=== PATIENT | female | born 1965 | race Caucasian/White ===

== ENCOUNTER → 2017-02-08 16:57 | Outpatient (CLI) | payer MEDICARE ==
[~2017-02-08 16:57] MED LIST: ADVIL200 MG; CYMBALTA60 MG; NORCO 10/325 TA1 TA1; PERCOCET 10/3251 TA1 PO; PRINZIDE 20/12.1 TAB PO; REMERON45 MG PO
== END | disposition home or self-care (01) ==
LOC: D.MAMMO 02-06 08:30 → D.US 02-06 09:30 → D.MAMMO 10:30
DX: K58.9 Irritable bowel syndrome, unspecified (principal); K59.00 Constipation, unspecified

== ENCOUNTER 2017-05-30 22:51 | Emergency (ER) | payer MEDICARE, MEDICAID ==
[2017-05-30 23:14] LABS: HEMATOCRIT 38.2 % (36.0-48.0); HEMOGLOBIN 12.9 g/dL (12-16); MCH 30.4 pg (26.0-34.0); MCHC 33.8 g/dL (31.0-37.0); MCV 90.1 fL (80.0-100.0); MEAN PLATELET VOLUME 9.5 fL (7.4-10.4); PLATELET COUNT 279 10x3/uL (130-400); RBC 4.24 10x6/uL (4.00-5.40); RDW 12.8 % (11.5-14.5)
[2017-05-30 23:36] LABS: ALBUMIN 3.5 g/dL (3.4-5.0); ALKALINE PHOSPHATASE 115 U/L (46-116); ALT (SGPT) 26 U/L (10-68); BILIRUBIN - TOTAL 0.19 mg/dL (0.2-1.3); CALC OSMOLALITY 276 mosm/kg (275-300); CALCIUM 9.1 mg/dL (8.5-10.1); CARBON DIOXIDE 31.1 mmol/L (21.0-32.0); CHLORIDE - SERUM 99 mmol/L (98-107); CREATININE - SERUM 1.1 mg/dL (0.6-1.3); GLUCOSE 113 mg/dL (74-106); POTASSIUM - SERUM 3.8 mmol/L (3.5-5.1); PROTEIN - SERUM 6.8 g/dL (6.4-8.2); SODIUM 137 mmol/L (136-145); UREA NITROGEN 17 mg/dL (7-18); eGFR NON AFRICAN AMERICAN 56 mL/min (90-120)
[2017-05-30 23:43] LABS: LYMPHOCYTES 61 % (15-50); MONOCYTES 2 % (2-11); NEUTROPHILS 35 % (40-80); PLATELET ESTIMATE NORMAL
[2017-05-30 23:44] LABS: CREATINE KINASE 80 UL (21-215)
[2017-05-30 23:47] LABS: TROPONIN-I < 0.017 ng/mL (0.000-0.060)
== END 2017-05-31 01:15 | disposition home or self-care (01) ==
LOC: D.ER 22:51
PROVIDERS: Emergency Medicine
DX: R55 Syncope and collapse (principal); W19.XXXA Unspecified fall, initial encounter; Y93.89 Activity, other specified; Y92.019 Unspecified place in single-family (private) house as the place of occurrence of the external cause; E11.9 Type 2 diabetes mellitus without complications; I10 Essential (primary) hypertension; F17.200 Nicotine dependence, unspecified, uncomplicated; R00.1 Bradycardia, unspecified

== ENCOUNTER 2017-07-27 06:00 | Outpatient (CLI) | payer MEDICARE ==
[~2017-07-27 06:00] MED LIST changes: +HYDROCODONE-APA1 TAB PO; -NORCO 10/325 TA1 TA1; -PRINZIDE 20/12.1 TAB PO; +ZESTORETIC 10/11 TAB PO
[2017-07-27] MEDS ORDERED: AMBIEN10 MG PO (13:42)
[2017-07-27] MEDS ORDERED: SEROQUEL50 MG PO (13:42)
[2017-07-27] MEDS ORDERED: K-TAB10 MEQ PO (13:42)
[2017-07-27] MEDS ORDERED: ZANAFLEX4 MG PO (13:42)
[2017-07-27] MEDS ORDERED: XANAX0.5 MG PO (13:43)
[2017-07-27 14:33] LABS: HEMATOCRIT 39.2 % (36.0-48.0); MCH 30.2 pg (26.0-34.0); MCHC 33.2 g/dL (31.0-37.0); MEAN PLATELET VOLUME 9.5 fL (7.4-10.4); RBC 4.31 10x6/uL (4.00-5.40); RDW 12.8 % (11.5-14.5); WBC 9.4 10x3/uL (4.8-10.8)
[2017-07-27 14:36] LABS: ANION GAP 10.6 mmol/L (8-16); CALCIUM 8.8 mg/dL (8.5-10.1); CARBON DIOXIDE 31.9 mmol/L (21.0-32.0); CREATININE - SERUM 0.9 mg/dL (0.6-1.3); POTASSIUM - SERUM 3.5 mmol/L (3.5-5.1)
[2017-08-06 12:01] VITALS: BMI 29.9
== END 2017-07-27 23:59 | disposition home or self-care (01) ==
LOC: D.OPS 06:00 → EDSTATUS 07-30 13:15 → D.PAN 07-30 13:15
PROVIDERS: Anesthesiology
DX: I10 Essential (primary) hypertension (principal); Z01.810 Encounter for preprocedural cardiovascular examination; Z01.811 Encounter for preprocedural respiratory examination; Z01.812 Encounter for preprocedural laboratory examination; Z53.9 Procedure and treatment not carried out, unspecified reason

== ENCOUNTER 2017-08-06 11:17 | Outpatient (CLI) | payer MEDICARE ==
[~2017-08-06] VITALS: Ht 177.8 cm; Wt 94.5 kg
--- NOTE | ~2017-08-06 | HEMODYNAMI ---
PATIENT:JENNIE SAVAGE MEDICAL RECORD: [id number] : 69 LOCATION:[facility] ADMISSION DATE: 08/06/17 Generatedon:08/06/201714:21 Patient name: JENNIE SAVAGE Patient #: [id number] SSN: : Date of study: 08/06/2017 Page: Of Hemodynamic Procedure Report Patient Data Patient Demographics Procedure consent was obtained First Name: JENNIE Gender: Female Last Name: JANETTE : 1965 [facility] Initial: SARAI Age: 51 year(s) Patient #: [id number] Race: Unknown Additional ID: [id number] Contact details [address]: [address] [place] [address] [place] State: [place] City: [place] Zip code: [address] Past Medical History Allergies Allergen Reaction Date Comments Reported Other allergy 08/06/2017 Tamiflu, Latex, Morphine, Vasotec Admission Admission Data Admission Date: 08/06/2017 Admission Time: 11:17 Procedure Procedure Types Cath Procedure Diagnostic Procedure LHC LHC w/Coronaries Miscellaneous Procedures Moderate Sedation up to 15 minutes Procedure Description Procedure Date Procedure Date: 08/06/2017 Procedure Start Time: 14:05 Procedure End Time: 14:20 Procedure Staff Name Function Joce Saha MD Performing Physician Roman Deras RT Monitor Louis Pimentel RN Nurse Leila Correia RT Scrub Procedure Data Cath Procedure Fluoroscopy Diagnostic fluoroscopy Total fluoroscopy Time: 1.4 time: 1.4 min min Diagnostic fluoroscopy Total fluoroscopy dose: 534 dose: 534 mGy mGy Contrast Material Contrast Material Type Amount (ml) Isovue 300 54 Entry Location Entry Primary Successful Side Size Upsize Upsize Entry Closure Clark ccessful Closure Location (Fr) 1 (Fr) 2 (Fr) Remarks Device Remarks Radial Right 6 Fr Mechanical artery Short Compression Estimated blood loss: 5 ml Diagnostic catheters Device Type Used For End Catheter Placement DIAGNOSTIC Casey 110cm 5 Procedure Fr catheter ([id number]) Procedure Complications No complications Procedure Medications Medication Administration Route Dosage 0.9% NaCl I.V. 100 ml/hr Oxygen NC 2 l/min Heparin Flush Bag added to field 2 bags (1000units/500ml NS) Lidocaine 2% added to field 20 Radial Cocktail added to field 1 syringe (Verapomil 2mg/Nitro 400mcg/Heparin 1500units) Versed I.V. 2 mg Fentanyl I.V. 100 mcg Versed I.V. 2 mg Fentanyl I.V. 100 mcg Versed I.V. 2 mg Fentanyl I.V. 100 mcg Radial Cocktail I.A. 1 syringe (Verapomil 2mg/Nitro 400mcg/Heparin 1500units) Versed I.V. 2 mg Hemodynamics Rest Heart Rate: 70 (bpm) Pressure Samples Time Site Value (mmHg) Purpose Heart Use Rate(bpm) 14:09 LV 78/5,8 Snapshot 77 14:09 LV 114/1,13 Snapshot 77 14:09 AO 111/67(86) Pullback 78 14:09 LV 116/0,7 Pullback 78 Gradients Valve Time Site 1 Site 2 Mean SEP/DFP Peak To Heart Use (mmHg) (sec/min) Peak Rate (mmHg) (bpm) Aortic 14:09 LV AO 7 6 5 78 116/0,7 111/67(86) Calculations Valve P-P Mean Valve Index Valve Source Name Gradient Area Flow (cm2) Aortic 5 7 5 7 Snapshots Pre Cath Intra NCS Post Cath Vital Signs Time Heart Resp SPO2 etCO2 NIBP (mmHg) Rhythm Pain Sedation Rate (ipm) (%) (mmHg) Status Level (bpm) 13:48:54 65 16 100 0 162/100(138) NSR 0 (11) 10(A) , No pain 13:53:30 68 27 100 0 150/98(126) NSR 0 (11) 10(A) , No pain 13:58:05 68 18 100 43 138/89(113) NSR 0 (11) 10(A) , No pain 14:02:39 69 17 99 24.9 127/80(107) NSR 0 (11) 10(A) , No pain 14:07:12 68 15 99 19.6 111/75(93) NSR 0 (11) 10(A) , No pain 14:11:38 73 13 97 23.4 113/89(105) NSR 0 (11) 10(A) , No pain 14:16:08 75 13 98 49.8 103/75(90) NSR 0 (11) 10(A) , No pain Medications Time Medication Route Dose Verified Delivered Reason Notes Effectiveness by by 13:48:49 0.9% NaCl I.V. 100 Louis Louis Per ml/hr Margarito Pimentel physician RN RN 13:49:00 Oxygen NC 2 l/min Louis Louis Per Margarito Pimentel physician RN RN 13:49:17 Heparin Flush added 2 bags Louis Louis used for Bag to Lorwilliams Pimentel procedure (1000units/500ml field RN RN NS) 13:50:28 Lidocaine 2% added 20ml Louis Louis for local to vial Lorigan Margarito anesthetic RN RN 13:50:47 Radial Cocktail added 1 Louis Louis used for (Verapomil to syringe Margarito Pimentel procedure 2mg/Nitro field AUGUSTINE RN 400mcg/Heparin 1500units) 13:57:43 Versed I.V. 2 mg Louis Louis for sedation Margarito Pimentel RN RN 13:57:51 Fentanyl I.V. 100 mcg Louis Louis for sedation Margarito Pimentel RN RN 13:59:30 Versed I.V. 2 mg Louis Louis for sedation Margarito Pimentel RN RN 13:59:37 Fentanyl I.V. 100 mcg Louis Louis for sedation Margarito Pimentel RN RN 14:02:06 Versed I.V. 2 mg Louis Louis for sedation Margarito Pimentel RN RN 14:07:26 Fentanyl I.V. 100 mcg Louis Louis for sedation Margarito Pimentel RN RN 14:08:53 Radial Cocktail I.A. 1 Louis Joce for (Verapomil syringe Margarito song 2mg/Nitro RN 400mcg/Heparin 1500units) 14:09:26 Versed I.V. 2 mg Louis Joce for sedation Margarito Saha MD, RN Procedure Log Time Note 13:37:32 Louis Pimentel RN sent for patient. Start room use. 13:37:33 Time tracking: Regular hours 13:37:37 Plan of Care:Hemodynamics will remain stable., Cardiac rhythm will remain stable., Comfort level will be maintained., Respiratory function will remain adequate., Patient/ family verbilizes understanding of procedure., Procedure tolerated without complication., Recovers from procedure without complications.. 13:47:58 Patient received from Pre/Post Procedure Room to CCL 1 Alert and oriented. Tansferred to table in Supine position. 13:47:59 Warm blankets applied, and celia hugger turned on for patient comfort. 13:48:00 Correct patient and procedure confirmed by team. 13:48:02 Signed procedure consent form obtained from patient. 13:48:03 ECG and BP/O2 sat monitors applied to patient. 13:48:04 Vital chart was started 13:48:05 Full Disclosure recording started 13:48:49 0.9% NaCl 100 ml/hr I.V. was administered by Louis Pimentel RN; Per physician; 13:49:00 Oxygen 2 l/min NC was administered by Louis Pimentel RN; Per physician; 13:49:17 Heparin Flush Bag (1000units/500ml NS) 2 bags added to field was administered by Louis Pimentel RN; used for procedure; 13:50:28 Lidocaine 2% 20ml vial added to field was administered by Louis Pimentel RN; for local anesthetic; 13:50:47 Radial Cocktail (Verapomil 2mg/Nitro 400mcg/Heparin 1500units) 1 syringe added to field was administered by Louis Pimentel RN; used for procedure; 13:54:39 Baseline sample Acquired. 13:54:43 Rhythm: sinus rhythm 13:55:02 H&P Date Dictated: 07/13/2017 Within 30 days and on chart., H&P Addendum completed by physician on day of procedure. (MUST COMPLETE FOR ALL OUTPATIENTS). 13:55:05 Pre-procedure instructions explained to patient. 13:55:06 Pre-op teaching completed and patient verbalized understanding. 13:55:07 Family in waiting room. 13:55:08 Patient NPO since Midnight. 13:55:33 Patient allergic to Other allergyTamiflu, Latex, Morphine, Vasotec 13:55:35 Is the patient allergic to Iodine/contrast media? No. 13:55:37 Is patient on blood thinner?No 13:55:38 Patient diabetic? No. 13:55:41 Previous problem with sedation/anesthesia? No ? 13:55:42 Snore? Yes 13:55:42 Sleep apnea? No 13:55:43 Deviated septum? No 13:55:44 Opens mouth fully? Yes 13:55:45 Sticks out tongue? Yes 13:55:46 Airway obstruction? No ? 13:55:48 Dentures? No ? 13:55:55 Modified Brent's test Ulnar < 7 seconds 13:55:57 Patient pain scale 0/10 ?. 13:56:00 IV patent on arrival in left antecubital with 0.9% NaCl at [facility]. 13:56:43 Lab results completed and on chart. 13:56:46 Right Radial & Right Groin area was prepped with chlora-prep and draped in sterile fashion 13:56:48 Alarms reviewed by R. N. 13:56:48 Sharps counted by scrub and verified by R.N. 13:56:52 Use device set Radial Dx or PCI 13:56:53 ACIST Syringe (11028) opened to sterile field. 13:56:54 Medline Cath Pack ([id number]) opened to sterile field. 13:56:55 Bag Decanter (2002S) opened to sterile field. 13:56:56 ACIST Hand Control (09292) opened to sterile field. 13:56:56 ACIST Manifold (04305) opened to sterile field. 13:56:57 Tegaderm 4 x 4 (1626W) opened to sterile field. 13:56:58 MBrace Wrist Support ([id number]) opened to sterile field. 13:56:59 DIAGNOSTIC WIRE .035 260cm J wire (593381) opened to sterile field. 13:56:59 SHEATH 6FR Slender ([id number]) opened to sterile field. 13:57:00 NEEDLE Cook 21G 4cm Radial (N56212) opened to sterile field. 13:57:11 Physician arrived 13:57:12 --------ALL STOP TIME OUT------ 13:57:12 Final Timeout: patient, procedure, and site verified with staff and physician. All members of the team are in agreement. 13:57:14 Right Radial & Right Groin site verified by team. 13:57:16 Physical assessment completed. ASA score P 2 - A patient with mild systemic disease as per Joce Saha MD. 13:57:18 Sedation plan: IV Moderate Sedation Medication:Versed, Fentanyl 13:57:43 Versed 2 mg I.V. was administered by Louis Pimentel RN; for sedation; 13:57:51 Fentanyl 100 mcg I.V. was administered by Louis Pimentel RN; for sedation; 13:59:30 Versed 2 mg I.V. was administered by Louis Pimentel RN; for sedation; 13:59:37 Fentanyl 100 mcg I.V. was administered by Louis Pimentel RN; for sedation; 14:01:19 Zero performed for pressure channel P1 14::25 Zero performed for pressure channel P1 14::27 Zero performed for pressure channel P1 14:01:30 Zero performed for pressure channel P1 14:02:03 Patient not . Patient has had hysterectomy. 14:02:06 Versed 2 mg I.V. was administered by Louis Pimentel RN; for sedation; 14:05:13 Procedure started. 14:05:17 Local anesthetic to right radial artery with Lidocaine 2% by Joce Saha MD.INITIAL ACCESS ONLY 14:07:21 A 6 Fr Short sheath was inserted into the Right Radial artery 14:07:26 Fentanyl 100 mcg I.V. was administered by Louis Pimentel RN; for sedation; 14:08:39 A DIAGNOSTIC Casey 110cm 5 Fr catheter (393421) was advanced over the wire and used for Procedure. 14:08:53 Radial Cocktail (Verapomil 2mg/Nitro 400mcg/Heparin 1500units) 1 syringe I.A. was administered by Joce Saha MD; for vasodilation; 14:09:07 LV gram done using STRANGE 14:09:09 Injector settings: Ml/sec: 5, Volume: 15, 14:09:26 Versed 2 mg I.V. was administered by Joce Saha MD; for sedation; 14:09:35 EF : 30 % 14:10:09 LCA angiography performed. 14:12:23 RCA angiography performed. 14:14:42 Catheter removed. 14:14:44 TR BAND Standard ([id number]) opened to sterile field. 14:15:05 Sheath removed intact; hemostasis achieved with Mechanical Compression to the Right Radial artery. 14:15:08 Procedure ended.(Physican Out) 14:16:59 Fluoroscopy time 01.40 minutes. 14:17:07 Flurop Dose total: 534 14:17:07 Fluoroscopy dose: 534 mGy 14:17:18 Contrast amount:Isovue 300 54ml. 14:17:19 Sharps counted by scrub and verified by R.N. 14:17:22 TR band inflated with 12cc of air. 14:17:23 Insertion/operative site no bleeding no hematoma. 14:17:30 Post right radial artery:stable, soft, clean and dry 14:17:32 Post Procedure Pulses reassessed and unchanged 14:17:35 Post-procedure physical assessment completed. ASA score P 2 - A patient with mild systemic disease as per Joce Saha MD. 14:17:39 Post procedure rhythm: unchanged. 14:17:53 Estimated blood loss: 5 ml 14:17:55 Post procedure instruction explained to patient.Patient verbalizes understanding. 14:17:56 Patient needs reinforcement of post procedure teaching. 14:19:28 Procedure type changed to Cath procedure, Diagnostic procedure, LHC, LHC w/Coronaries, Miscellaneous Procedures, Moderate Sedation up to 15 minutes 14:20:25 Procedure and supply charges have been captured, reviewed, submitted and are correct. 14:20:27 Procedure Complication : No complications 14:20:30 Vital chart was stopped 14:20:30 See physician's report for complete and final results. 14:20:31 Report given to Pre/Post Procedure Room. 14:20:34 Patient transfered to Pre/Post Procedure Room with Stretcher. 14:20:36 Procedure ended. 14:20:36 Full Disclosure recording stopped 14:21:10 End room use (Document Last) Device Usage Item Name Manufacture Quantity Catalog Hospital Part Current Minima l Lot# / Number Charge Number Stock Stock Serial# Code ACIST Acist 1 65549 321948 296437 649682 20 Syringe Medical (71428) Systems Inc Medline Cath Cardinal 1 [id number] 488913 20238 933906 5 Pack Health ([id number]) Bag Decanter Microtek 1 2001S 948658 14099 823907 5 () Medical Inc. ACIST Hand Acist 1 13440 700546 392781 424847 5 Control Medical (12231) Systems Inc ACIST Acist 1 08956 092201 687357 625057 5 Manifold Medical (41652) Systems Inc Tegaderm 4 x 3M 1 1626W 428327 777833 821765 5 4 (1626W) MBrace Wrist Advanced 1 140-0250-00 194928 10985 001872 5 Support Vascular ([id number]) Dynamics DIAGNOSTIC [facility] 1 640528 586255 403311 811736 30 WIRE .035 260cm J wire (973451) SHEATH 6FR Terumo 1 [id number] 054002 118089 656878 40 Slender ([id number]) NEEDLE [facility] 1 Y12140 623832 425179 908418 5 21G 4cm Radial (F08594) DIAGNOSTIC Terumo 1 40-5013 242377 032978 038251 5 Casey 110cm 5 Fr catheter (466182) TR BAND Terumo 1 [id number] 812498 019924 037887 40 Standard ([id number]) Signature Audit Gaffney Stage Time Signature Unsigned Intra-Procedure 08/06/2017 Roman Deras 2:21:48 PM RT(R) Signatures Monitor : Roman Deras RT Signature : Date : Time : [facility] [address] [place] [address]
[~2017-08-06 11:17] MED LIST changes: +AMBIEN10 MG PO; -HYDROCODONE-APA1 TAB PO; +K-TAB10 MEQ PO; +NORCO 10/325 TA1 TA1; +PRINZIDE 20/12.1 TAB PO; +SEROQUEL50 MG PO; +XANAX2 MG PO; +ZANAFLEX4 MG PO; -ZESTORETIC 10/11 TAB PO
[2017-08-06] MEDS ORDERED: BENTYL 20 MG TA20 MG PO (11:42)
[2017-08-06] MEDS ORDERED: CARAFATE1 G PO (11:43)
[2017-08-06] MEDS ORDERED: OMEPRAZOLE40 MG PO (11:44)
[2017-08-06] MEDS ORDERED: CYMBALTA60 MG PO (11:44)
[2017-08-06] MEDS ORDERED: BYSTOLIC5 MG PO (11:46)
[2017-08-06] MEDS ORDERED: LOMOTIL TABLET1 TAB PO (11:47)
[2017-08-06] MEDS ORDERED: LAMICTAL200 MG PO (11:49)
[2017-08-06] MEDS ORDERED: ABILIFY2 MG PO (11:50)
[2017-08-06] MEDS ORDERED: LIDODERM 5 %1 PATCH TRANSDERM (11:50)
[2017-08-06] MEDS ORDERED: CATAPRES0.1 MG PO (11:50)
[2017-08-06] MEDS ORDERED: XIFAXAN550 MG PO (11:51)
[2017-08-06] MEDS ORDERED: TRILEPTAL300 MG PO (11:52)
[2017-08-06 12:01] VITALS: BP 121/76; Ht 177.8 cm; Wt 94.5 kg
[2017-08-06 12:04] LABS: HCG SERUM NEGATIVE (NEGATIVE)
[2017-08-06 12:09] LABS: ANION GAP 12.9 mmol/L (8-16); BASOPHILS 0.5 % (0-2); CALCIUM 9.5 mg/dL (8.5-10.1); CREATININE - SERUM 0.9 mg/dL (0.6-1.3); EOSINOPHILS 0.9 % (0-7); HEMATOCRIT 42.9 % (36.0-48.0); HEMOGLOBIN 14.4 g/dL (12-16); IMMATURE GRANULOCYTES 0.2 % (0-5); LYMPHOCYTES 38.7 % (15-50); MCH 30.8 pg (26.0-34.0); MCHC 33.6 g/dL (31.0-37.0); MCV 91.7 fL (80.0-100.0); MEAN PLATELET VOLUME 9.9 fL (7.4-10.4); MONOCYTES 8.1 % (2-11); NEUTROPHILS 51.6 % (40-80); PLATELET COUNT 352 10x3/uL (130-400); POTASSIUM - SERUM 3.9 mmol/L (3.5-5.1); RBC 4.68 10x6/uL (4.00-5.40); WBC 9.5 10x3/uL (4.8-10.8)
== END 2017-08-06 16:36 | disposition home or self-care (01) ==
LOC: D.CATH 11:17
PROVIDERS: Internal Medicine Cardiovascular Disease
DX: I20.9 Angina pectoris, unspecified (principal); R94.30 Abnormal result of cardiovascular function study, unspecified; I10 Essential (primary) hypertension; R55 Syncope and collapse; R94.31 Abnormal electrocardiogram [ECG] [EKG]; Z01.812 Encounter for preprocedural laboratory examination

== ENCOUNTER 2017-08-13 14:00 | Inpatient (IN) | payer MEDICARE ==
[~2017-08-13] VITALS: Ht 177.8 cm; Wt 105.5 kg
--- NOTE | ~2017-08-13 | TEE ---
PATIENT:JENNIE SAVAGE MEDICAL RECORD: [id number] LOCATION:[place] [address] AGE OF PATIENT: 51 ADMISSION DATE: 08/16/17 SEX: F REFERRING PHYSICIAN: INTERPRETING PHYSICIAN: MENDOZA MALIK MD TRANSESOPHAGEAL ECHOCARDIOGRAM GINO CHARGE Y INDICATIONS: CABG WTIH POSSIBLE MVR PREMEDICATIONS: PATIENT'S RESPONSE PROCEDURE DOPPLER MEASUREMENTS: LVIT LA PA RA LVOT RVOT Asc. Ao AV Gradient Peak AV Mean AV Area MV Gradient Peak MV Mean MV Area INTERPRETATION: Doppler: 2-D: EF 55 COLOR FLOW DOPPLER MILD/MOD MR NORMAL SALINE STUDY: MISCELLANOUS: DIAGNOSIS: PLAN: Plumber Helper:Anali Saha Actuarial Director: Anali SUBRAMANIAN COMMENTS: DATE OF SERVICE: 08/16/2017 PROCEDURE: Transesophageal echo evaluation of valvular structures during bypass surgery. FINDINGS: 1. Left ventricular chamber size is within normal limits. Left ventricular systolic function is normal. Overall ejection fraction estimated at 60%. 2. Left atrium, right atrium, and right ventricular chamber sizes are mildly TRANSESOPHAGEAL ECHOCARDIOGRAM REPORT [id number] JENNIE SAVAGE. 3. Valvular structures have normal structure and motion. 4. Doppler interrogation reveals qvtb-[id number]-ghpahbry mitral regurgitation. No other valvular insufficiency or stenosis. 5. No evidence of pericardial effusion or left ventricular thrombus. TRANSINT:[id number] Voice Confirmation ID: [id number] DOCUMENT ID: [id number] at 1153 CC: [id number] DICTATION DATE: 08/16/17 1217 FURRIER DESIGNER: 08/16/17 1249 ADM IN [place] [address] [place] [address]
--- NOTE | ~2017-08-13 | HP ---
PATIENT: JENNIE SAVAGE MEDICAL RECORD: [id number] ACCOUNT: [id number] LOCATION:[facility]06 : 69 ADMISSION DATE: 08/16/17 HISTORY AND PHYSICAL EXAMINATION JENNIE Cano (51yo, F) ID# [id number]. Date/Time08/10/2017 02:10QGBGF54 1965[facility] Dept.[facility]_[place] [facility] ClinicProviderPHILLY LAGUNAS MDInsuranceMed Primary: HUMANA (PPO) Insurance # : [id number] Policy/Group # : [id number] Referring Provider Name : CHELSEY HERNANDEZ Employer Name : [employer] Secondary: [place] Insurance # : [id number] PCP : CHELSEY HERNANDEZ Employer Name : [facility] Med : HUMANA - GOLD PLUS (MEDICARE REPLACEMENT/ADVANTAGE - HMO) Insurance # : [id number] Policy/Group # : [id number] PCP : CHELSEY HERNANDEZ Employer Name : [employer] Prescription: DSTPSDIR - Member is eligible. Prescription: [facility] MEDICAID ADMINISTRATION - Member is eligible. Chief Complaint Coronary artery disease initial evaluation for CABG Patient's Care Team Referring Provider (): CHELSEY HERNANDEZ: [facility] [place] [address], , Primary Care Provider (): CHELSEY HERNANDEZ: Lakisha WALTER[facility] [place] [address], , [facility] (ERX): [address], [place] [address], , [facility]: [address], [place] [address], Vitals BP:128/80 sitting L arm 08/10/2017 02:22 pm 128/88 sitting R arm 08/10/2017 02:23 pmBP Cuff Size:adult 08/10/2017 02:22 pm adult 08/10/2017 02:23 pmHR:72,reg 08/10/2017 02:24 pmHt:5 ft 10 in 08/10/2017 02:23 pmWt:208 lbs 08/10/2017 02:23 pmNotes:had syncopal episode 05/30, was transported via ambulance to [facility] where she had EKGs and was discharged to see PCP. Dr Hernandez is PCP, he sent her to [place]. Had ECHO, stress test in Jul, and then was doing preop for a knee surgery when abnormal EKG got procedure canceled and got her sent back to cardiology for further w/u. Cathed Sunday 08/06, now here for eval 08/10/2017 02:28 pmBMI:29.8 08/10/2017 02:23 pmAllergies Reviewed Allergies MORPHINETAMIFLUVASOTECMedications Reviewed Medications ACETAMINOPHEN 500 MG05/07/17 filledPeoplePerHour.comALPRAZolam 2 mg tablet TK 1 T PO TID PRN FOR RLHCTQU48/15/18 filledPeoplePerHour.comamLODIPine 5 mg clfayf79/29/17 [facility] hospitalPeoplePerHour.comAnti-Diarrheal Tablets 2 mg- filledTuc[facility] CenterVee24buPROPion HCl XL 150 mg 24 hr tablet, extended xhmcbpe24/13/18 filledPeoplePerHour.comBystolic 5 mg tablet TK 1 T PO D007/17/17 filledT[facility] CenterVee24dicyclomine 20 mg tocace48/06/17 [facility] Hospital[facility]ee24diphenoxylate-atropine 2.5 mg-0.025 mg xewckx57/02/17 HISTORY AND PHYSICAL [id number] JENNIE SAVAGE filledTucson Medical CenterVee24DULoxetine 60 mg capsule,delayed release TK ONE C PO BID06/10/17 filledPeoplePerHour.comHYDROcodone 10 mg-acetaminophen 325 mg tablet 1 PO Q 6 HRS PRN07/12/17 filledPeoplePerHour.comlisinopril 20 mg-hydrochlorothiazide 12.5 mg tablet Take 1 tablet(s) every day by oral route.05/18/17 filledPeoplePerHour.commirtazapine 30 mg tablet Take 1 tablet(s) every day by oral route.03/14/11 filledMON[place] MEDICAIDomeprazole 40 mg capsule,delayed release TK ONE C PO D007/12/17 filledArgus Health SystemsONE A DAY WOMENS BHRJQCSCOTSV48/27/17 filledPeoplePerHour.compotassium chloride ER 10 mEq capsule,extended release TK 1 C PO QD07/08/17 filledsurescriptsQUEtiapine 50 mg tablet TK 1 TO 2 TS PO QHS08/08/17 filledArgVee24tiZANidine 4 mg mbulsh12/01/18 filledT[facility]son Medical CenterVee24TOOTHPASTE - 2 PACK05/07/17 filledTucson Medical CenterExpert Medical Navigation SystemstraZODone 50 mg uiicvy30/01/10 filled[facility] MEDICAIDTRIPLE ANTIBIOTIC OINTMENT PLU107/07/16 filledPeoplePerHour.comzolpidem 10 mg viwxsi05/15/18 filledPeoplePerHour.comProblems Reviewed Problems Diabetes mellitus - Onset: 08/10/2017 Hyperlipidemia - Onset: 08/10/2017 Anxiety - Onset: 08/10/2017 Tobacco user - Onset: 08/10/2017 Hypertensive disorder - Onset: 08/10/2017 Coronary arteriosclerosis - Onset: 08/10/2017 Current tear of medial cartilage AND/OR meniscus of knee, Right Sprain of cruciate ligament of knee, Right Family History Reviewed Family History Father- Heart disease - previously recorded as Heart Problem - Myocardial infarctionMother- Malignant neoplastic disease - 04/25/2010 (previously recorded as Cancer, other) - Myocardial infarctionPaternal Grandfather- Myocardial infarctionSocial History Reviewed Social History Cardiology Family history of heart disease?: Y Smoking Status: Current every day smoker (Notes: planning to stop) Smoker (1/2 PPD) High Cholesterol: Y High blood pressure: Y Overweight: Y Obese: Y Diabetes: Y Alcohol intake: None Surgical History Reviewed Surgical History Other - L leg varic v sclero/avulsions Knee arthroscopy/surgery - 10/31/2010 Knee arthroscopy/surgery - 10/31/2010 LISSETT, HYSTERECTOMY, TONSILLECTOMY, HERNIA, ACL X 3 HISTORY AND PHYSICAL [id number] 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 HPI Coronary Artery Disease F/U Reported by patient. Notes: Assym, occas DUVAL, no periph edema; abnl EKG; strong FH - father @ 49, smoker; EF 28%, fixed lat, revers ant/inf;+ stress; ECHO 50% L leg varic v ROS Patient reports no muscle aches, no muscle weakness, no arthralgias/joint pain, no back pain, and no swelling in the extremities; R knee pain. She reports no fever, no night sweats, no si gnificant weight gain, no significant weight loss, and no exercise intolerance. She reports no dry eyes, no irritation, and no vision change. She reports no difficulty hearing and no ear pain. She reports no frequent nosebleeds and no nose/sinus problems. She reports no sore throat, no bleeding gums, no snoring, no dry mouth, no mouth ulcers, no oral abnormalities, and no teeth problems. She reports no jugular vein distension and no swollen glands. She reports no chest pain, no arm pain on exertion, no luanne r tness of breath when walking, no shortness of breath when lying down, no palpitations, and no known heart murmur. She reports no cough, no wheezing, no shortness of breath, and no coughing up blood. She reports no abdominal pain, no vomiting, normal appet i te, no diarrhea, not vomiting blood, no nausea, and no constipation. She reports no incontinence, no difficulty urinating, no hematuria, and no increased frequency. She reports no abnormal mole, no jaundice, and no rashes. She reports no loss of conscious n ess, no weakness, no numbness, no seizures, no dizziness, and no headaches. She reports no depression, no sleep disturbances, feeling safe in relationship, and no alcohol abuse. She reports no fatigue. She reports no swollen glands and no bruising. She re ports no runny nose, no sinus pressure, no itching, no hives, and no frequent sneezing. ROS as noted in the HPI Physical Exam Patient is a 51-year-old female. Constitutional: General Appearance well nourished and developed and healthy-appearing. Level of Distress NAD. Ambulation ambulating normally. Cardiovascular: Apical Impulse not displaced or no thrill. Heart Auscultation normal s1 and s2; no murmurs, rubs, or gallops; and RRR. Arterial Pulses no abdominal aor ta bruits, femoral bruits, or popliteal bruits and 2+ bilateral, carotid 2+ bilateral, femoral 2+ bilateral, popliteal 2+ bilateral, and dorsalis pedis 2+ bilateral. Edema no edema or varicosities. HISTORY AND PHYSICAL [id number] JENNIE SAVAGE Lungs: Repiratory Effort no dyspnea. Percussion no hyperr esonance or dullness or flatness. Auscultation no wheezing, rhonchi, or rales / crackles and breathing sounds normal, good air movement, and CTA except as noted. Abdomen: Bowl Sounds normal. Inspection and Palpation no tenderness, guarding, masses, or layla ound tenderness and soft and non-distended. Liver non-tender and no hepatomegaly. Spleen non-tender and no splenomegaly. Hernia none palpable. Musculoskeletal System: Gait And Stance normal gait and stance. Digits and Nails normal nails and no cyanosis. Neurologic: Cranial Nerves grossly intact. Reflexes DTRs 2+ bilaterally throughout. Sensation grossly intact. Lymph Nodes: Lymph Nodes no cervical LAD, supraclavicular LAD, axillary LAD, or inguinal LAD. Eyes: Lids and Conjunctivae no discharge or pallor and non-injected. Pupils PERRLA. Cornea grossly intact. EOM EOMI. Lens clear. Sclera non-icteric. Neck: Neck no masses, enlarged lymph nodes, or carotid bruits and supple and trachea midline. Thyroid no enlargement or nodules and non-tender. Skin: Inspection and Palpation no rash, lesions, ulcers, jaundice, or abnormal nevi. Assessment / Plan 1. Coronary arteriosclerosis I25.10: Atherosclerotic heart disease of [place] coronary artery without angina pectoris 2. Mitral valve regurgitation I34.0: Nonrheumatic mitral (valve) insufficiency 3. Tobacco dependence syndrome F17.210: Nicotine dependence, cigarettes, uncomplicated DECIDING ABOUT USING MEDICINES TO QUIT SMOKING STOPPING SMOKING: CARE INSTRUCTIONS 4. Peripheral venous insufficiency I87.2: Venous insufficiency (chronic) (peripheral) 5. Generalized ischemic myocardial dysfunction I25.5: Ischemic cardiomyopathy Patient Instructions Stop smoking Discussion Notes RBA, consent HISTORY AND PHYSICAL [id number] JENNIE SAVAGE, PHILLY York MD at 8765 CC: [id number] DICTATION DATE: 08/10/17 1430 FLIGHT DYNAMICIST: DM 08/13/17 1019 ADM IN [place] [id number] [place] [id number]
--- NOTE | ~2017-08-13 | OP ---
PATIENT NAME: JENNIE SAVAGE MEDICAL RECORD: [id number] :69 LOCATION:D.I D.[facility]06 ADMISSION DATE:08/16/17 SURGEON: EVAN LAGUNAS MD DATE OF OPERATION: 08/16/2017 SURGEON: Evan Lagunas MD FILTER PRESS TENDER: ADA Estrada OPERATION PERFORMED: 1. Mitral valve annuloplasty. 2. Coronary artery bypass graft times 4 (left internal mammary artery to LAD, reverse saphenous vein graft from aorta to first diagonal, aorta to obtuse marginal, and aorta to right coronary artery). PREOPERATIVE DIAGNOSES: Mitral regurgitation, syncope, coronary artery disease, previous myocardial infarction, diabetes, tobacco abuse, hypertension, hyperlipidemia, previous history of venous insufficiency and varicose veins with vein ligation and sclerotherapy. POSTOPERATIVE DIAGNOSES: Mitral regurgitation, syncope, coronary artery disease, previous myocardial infarction, diabetes, tobacco abuse, hypertension, hyperlipidemia, previous history of venous insufficiency and varicose veins with vein ligation and sclerotherapy. ANESTHESIA: General endotracheal anesthesia. ESTIMATED BLOOD LOSS: Total cardiopulmonary bypass with Cell Saver retransfusion. No bank blood transfusions. COMPLICATIONS: None. CONDITION: Stable. DISPOSITION: CV ICU. SPECIMENS: None. OPERATIVE FINDINGS: 1. Transesophageal echocardiography revealed left ventricular hypertrophy, ejection fraction 40% to 50% with no wall motion abnormalities and 2+ central mitral regurgitation with preserved valvular and subvalvular apparatus. 2. The vein below the upper calf was unusable on the right, but 2 segments of reasonable greater saphenous vein were harvested and a small section of thigh vein harvested used for the diagonal graft requiring multiple bridging incisions in the right thigh. As of the left leg, it had a previous sclerotherapy. 3. Left internal mammary artery was a good conduit. 4. The heart was a dilated heart, especially the right heart. 5. All vessels had severe distal disease. The LAD was a 1.5 mm vessel. 6. First diagonal was severely diseased 1.25 mm vessel. 7. Obtuse marginal which was the totally occluded vessel filled by collaterals was a 1.5 mm severely diseased vessel, especially proximally. 8. Right coronary artery was calcified and diseased throughout. The posterior descending artery was small, so the graft was taken just off the distal right coronary artery at the only site amenable for bypass. OPERATIVE REPORT [id number] JENNIE SAVAGE 9. The mitral valve was normal in appearance with some slight redundancy of P2. A 32 mm Physio II ring was used with resultant repair of the mitral regurgitation. 10. Transesophageal echocardiography after separation from cardiopulmonary bypass revealed only trace residual mitral regurgitation. OPERATIVE INDICATION: Mitral regurgitation, syncope, coronary artery disease, and previous myocardial infarction. OPERATIVE SUMMARY IN DETAIL: The patient was brought to the operating suite. General anesthesia was obtained. The patient was prepped and draped. Transesophageal echocardiography findings as above. The patient was prepped and draped. Greater saphenous vein harvested in the right leg with findings as above. Side branches were clipped. The leg was closed in 2 layers and later wrapped with an elastic wrap. Median sternotomy incision was made. Subcutaneous tissue was divided with electrocautery. Sternum was divided with saw. Left hemisternum was elevated. Left pleural cavity was entered. Left internal mammary artery and vein was taken down as a pedicle graft. The sternal retractor was placed. Pericardium was opened. Heparin was given. The aorta was cannulated between concentric pursestrings. Bicaval cannulation was performed. Retrograde cardioplegic cannula was inserted. The internal mammary was clipped distally and made ready for anastomosis. The patient placed on cardiopulmonary bypass. Sites for distal anastomosis were selected. The patient was cooled. Crossclamp was placed. Cardioplegia given antegrade and retrograde and cardioplegia was repeated at 15 to 20 minute intervals during the cross clamp time including down the completed vein grafts. Distal anastomoses were performed in a standard technique with the veins first, then the interatrial groove was opened. Left atrium was entered. Valve was visualized. Injection of the left ventricle revealed central regurgitation, slightly redundant, middle scallop of the posterior leaflet. The valve was sized to 32 mm. Interrupted nonpledgeted suture was placed around the annulus, then through the sewing ring and the ring was carefully tied into place. Recheck revealed only a very slight leak in the center and the redundant tissue did not cause any obstruction to flow. The patient was rewarmed. Atrium was closed. Distal LAD and anastomosis as well as the 3 proximals were performed. The left ventricular apex was de-aired and then the crossclamp was removed. Root was de-aired. Proximals were tied down. Grafts were deaired. Proximal and distal anastomotic sites were inspected for bleeding. The patient resumed his spontaneous rhythm, fully rewarmed, weaned off his cardiopulmonary bypass and was stable. The patient was decannulated. Cannulation sites were oversewn. Protamine was given. The grafts lay appropriately. Thorough irrigation was undertaken. Atrial and ventricular pacing wires were placed. A drain was placed in mediastinum and both pleural cavities. Pericardial fat was loosely reapproximated in the midline. Left chest was evacuated and irrigated. The internal mammary harvest site was made hemostatic. Sternum was closed with wires. The patient was stable. Chest closed. The fascia was closed. Subcutaneous tissue was closed. Skin was closed. Dermabond was placed. The needle and sponge counts reported as correct. The patient was taken to ICU in stable condition. TRANSINT:[id number] Voice Confirmation ID: [id number] DOCUMENT ID: [id number] OPERATIVE REPORT [id number] JENNIE SAVAGE, EVAN York MD at 1644 CC: YEIMI BARRY M.D. and CHELSEY HERNANDEZ [id number] DICTATION DATE: 08/16/17 180 GEAR CUTTING MACHINE OPERATOR: 08/16/17 1950 ADM IN [facility] [address] [place] [address]
[~2017-08-13 14:00] MED LIST changes: +ABILIFY2 MG PO; +BENTYL 20 MG TA20 MG PO; +BYSTOLIC5 MG PO; +CARAFATE1 G PO; +CATAPRES0.1 MG PO; +CYMBALTA60 MG PO; +HYDROCODONE-APA1 TAB PO; +LAMICTAL200 MG PO; +LIDODERM 5 %1 PATCH TRANSDERM; +LOMOTIL TABLET1 TAB PO; -NORCO 10/325 TA1 TA1; +OMEPRAZOLE40 MG PO; -PRINZIDE 20/12.1 TAB PO; +TRILEPTAL300 MG PO; +XANAX0.5 MG PO; -XANAX2 MG PO; +XIFAXAN550 MG PO; +ZESTORETIC 10/11 TAB PO
[2017-08-13] MEDS ORDERED: CYMBALTA60 MG PO (14:07)
[2017-08-13] MEDS ORDERED: BUPROPION XL150 MG PO (14:08)
[2017-08-13] MEDS ORDERED: K-TAB10 MEQ PO (14:11)
[2017-08-13] MEDS ORDERED: VALIUM10 MG PO (14:15)
[2017-08-13 15:51] LABS: BASOPHILS 0.6 % (0-2); EOSINOPHILS 1.3 % (0-7); HEMATOCRIT 39.2 % (36.0-48.0); HEMOGLOBIN 13.2 g/dL (12-16); IMMATURE GRANULOCYTES 0.2 % (0-5); LYMPHOCYTES 47.6 % (15-50); MCH 30.3 pg (26.0-34.0); MCHC 33.7 g/dL (31.0-37.0); MCV 90.1 fL (80.0-100.0); MONOCYTES 6.3 % (2-11); PLATELET COUNT 298 10x3/uL (130-400); RBC 4.35 10x6/uL (4.00-5.40); RDW 12.7 % (11.5-14.5); WBC 9.3 10x3/uL (4.8-10.8)
[2017-08-13 16:11] LABS: APTT 29.2 SECONDS (22.8-39.4); INR 0.95 (0.85-1.17); PROTIME 12.3 SECONDS (11.6-15.0)
[2017-08-13 16:19] LABS: APPEARANCE CLEAR (CLEAR); BILIRUBIN NEGATIVE (NEGATIVE); COLOR YELLOW (YELLOW); GLUCOSE NEGATIVE (NEGATIVE); KETONE NEGATIVE (NEGATIVE); NITRITE NEGATIVE (NEGATIVE); PROTEIN NEGATIVE (NEGATIVE); SPECIFIC GRAVITY 1.025 (1.005-1.020); UROBILINOGEN NORMAL (NORMAL)
[2017-08-13 16:20] LABS: ALBUMIN 3.6 g/dL (3.4-5.0); ALKALINE PHOSPHATASE 108 U/L (46-116); ALT (SGPT) 27 U/L (10-68); CALC OSMOLALITY 287 mosm/kg (275-300); CALCIUM 8.6 mg/dL (8.5-10.1); CARBON DIOXIDE 29.4 mmol/L (21.0-32.0); CHLORIDE - SERUM 103 mmol/L (98-107); CHOLESTEROL, TOTAL 306 mg/dL (0-200); CREATININE - SERUM 0.8 mg/dL (0.6-1.3); PHOSPHOROUS 3.5 mg/dL (2.5-4.9); POTASSIUM - SERUM 3.1 mmol/L (3.5-5.1); PROTEIN - SERUM 7.6 g/dL (6.4-8.2); SODIUM 141 mmol/L (136-145); T4 THYROXIN - FREE 0.84 ng/dL (0.76-1.46); THYROID STIMULATING HORMONE 1.88 uIU/mL (0.36-3.74); UREA NITROGEN 20 mg/dL (7-18); URIC ACID 4.3 mg/dL (2.6-7.2); eGFR NON AFRICAN AMERICAN 81 mL/min (90-120)
[2017-08-13 16:25] LABS: GLUCOSE 168 mg/dL (74-106)
[2017-08-16] VITALS (30 sets, daily range): BP systolic 91–136; BP diastolic 50–82; BMI 31.3
[2017-08-16 08:40] LABS: PLT FUNCT.(P2Y12) PLAVIX 308 PRU (194-418)
[2017-08-16 16:11] LABS: HEMATOCRIT 33.2 % (36.0-48.0); HEMOGLOBIN 10.9 g/dL (12-16); MCH 29.8 pg (26.0-34.0); MCHC 32.8 g/dL (31.0-37.0); MCV 90.7 fL (80.0-100.0); MEAN PLATELET VOLUME 10.2 fL (7.4-10.4); RBC 3.66 10x6/uL (4.00-5.40); RDW 12.7 % (11.5-14.5); WBC 18.3 10x3/uL (4.8-10.8)
[2017-08-16 16:20] LABS: APTT 30.5 SECONDS (22.8-39.4); INR 1.26 (0.85-1.17); PROTIME 15.3 SECONDS (11.6-15.0)
[2017-08-16 16:23] LABS: CALC OSMOLALITY 290 mosm/kg (275-300); CALCIUM 7.5 mg/dL (8.5-10.1); CARBON DIOXIDE 23.1 mmol/L (21.0-32.0); CHLORIDE - SERUM 109 mmol/L (98-107); CREATININE - SERUM 0.8 mg/dL (0.6-1.3); GLUCOSE 160 mg/dL (74-106); POTASSIUM - SERUM 4.1 mmol/L (3.5-5.1); SODIUM 143 mmol/L (136-145); UREA NITROGEN 20 mg/dL (7-18); eGFR NON AFRICAN AMERICAN 81 mL/min (90-120)
[2017-08-17] VITALS (51 sets, daily range): BP systolic 82–120; BP diastolic 48–84; Ht 177.8 cm; Wt 105.5 kg
[2017-08-17 04:30] LABS: HEMATOCRIT 33.5 % (36.0-48.0); HEMOGLOBIN 10.9 g/dL (12-16); MCH 29.9 pg (26.0-34.0); MCHC 32.5 g/dL (31.0-37.0); MCV 91.8 fL (80.0-100.0); MEAN PLATELET VOLUME 9.9 fL (7.4-10.4); RBC 3.65 10x6/uL (4.00-5.40); RDW 13.2 % (11.5-14.5); WBC 19.5 10x3/uL (4.8-10.8)
[2017-08-17 04:48] LABS: ALBUMIN 2.8 g/dL (3.4-5.0); ANION GAP 11.1 mmol/L (8-16); BILIRUBIN - TOTAL 0.29 mg/dL (0.2-1.3); CALCIUM 7.5 mg/dL (8.5-10.1); CARBON DIOXIDE 27.4 mmol/L (21.0-32.0); POTASSIUM - SERUM 4.5 mmol/L (3.5-5.1); PROTEIN - SERUM 5.5 g/dL (6.4-8.2)
[2017-08-18] VITALS (35 sets, daily range): BP systolic 80–119; BP diastolic 45–79
[2017-08-18 05:02] LABS: HEMATOCRIT 25.3 % (36.0-48.0); HEMOGLOBIN 8.2 g/dL (12-16); MCH 29.9 pg (26.0-34.0); MCHC 32.4 g/dL (31.0-37.0); MCV 92.3 fL (80.0-100.0); MEAN PLATELET VOLUME 10.1 fL (7.4-10.4); RBC 2.74 10x6/uL (4.00-5.40); RDW 13.7 % (11.5-14.5); WBC 15.5 10x3/uL (4.8-10.8)
[2017-08-18 05:18] LABS: ALBUMIN 2.2 g/dL (3.4-5.0); ANION GAP 9.5 mmol/L (8-16); BILIRUBIN - TOTAL 0.46 mg/dL (0.2-1.3); CALCIUM 7.6 mg/dL (8.5-10.1); CARBON DIOXIDE 28.7 mmol/L (21.0-32.0); POTASSIUM - SERUM 4.2 mmol/L (3.5-5.1); PROTEIN - SERUM 5.1 g/dL (6.4-8.2)
[2017-08-18 05:39] LABS: APPEARANCE CLEAR (CLEAR); BILIRUBIN NEGATIVE (NEGATIVE); COLOR YELLOW (YELLOW); GLUCOSE NEGATIVE (NEGATIVE); KETONE NEGATIVE (NEGATIVE); NITRITE NEGATIVE (NEGATIVE); PROTEIN NEGATIVE (NEGATIVE); UROBILINOGEN NORMAL (NORMAL)
[2017-08-18 05:44] LABS: EPITHELIAL CELLS 0-5 /hpf (0-5); WHITE CELLS - URINE 0-5 /hpf (0-5)
[2017-08-18 05:45] LABS: BACTERIA FEW /hpf (NONE SEEN); HYALINE CAST 0-5 /lpf (NONE SEEN); MUCUS >1+ /lpf (NONE SEEN)
[2017-08-19] VITALS (23 sets, daily range): BP systolic 86–142; BP diastolic 37–86
[2017-08-19 05:08] LABS: HEMATOCRIT 22.6 % (36.0-48.0); MCH 29.8 pg (26.0-34.0); MCHC 31.9 g/dL (31.0-37.0); MCV 93.4 fL (80.0-100.0); MEAN PLATELET VOLUME 9.5 fL (7.4-10.4); RBC 2.42 10x6/uL (4.00-5.40); RDW 13.4 % (11.5-14.5); WBC 12.4 10x3/uL (4.8-10.8)
[2017-08-19 05:15] LABS: HEMOGLOBIN 7.2 g/dL (12-16)
[2017-08-19 05:28] LABS: ALBUMIN 1.9 g/dL (3.4-5.0); ALKALINE PHOSPHATASE 70 U/L (46-116); ALT (SGPT) 36 U/L (10-68); BILIRUBIN - TOTAL 0.52 mg/dL (0.2-1.3); CALCIUM 7.8 mg/dL (8.5-10.1); CARBON DIOXIDE 29.3 mmol/L (21.0-32.0); CHLORIDE - SERUM 100 mmol/L (98-107); GLUCOSE 140 mg/dL (74-106); POTASSIUM - SERUM 3.7 mmol/L (3.5-5.1); PROTEIN - SERUM 5.2 g/dL (6.4-8.2); SODIUM 133 mmol/L (136-145)
[2017-08-19 05:34] LABS: CALC OSMOLALITY 269 mosm/kg (275-300); CREATININE - SERUM 0.6 mg/dL (0.6-1.3); UREA NITROGEN 19 mg/dL (7-18); eGFR NON AFRICAN AMERICAN > 90 mL/min (90-120)
[2017-08-20] VITALS (24 sets, daily range): BP systolic 82–136; BP diastolic 43–90
[2017-08-20 05:16] LABS: ALBUMIN 1.9 g/dL (3.4-5.0); ALKALINE PHOSPHATASE 105 U/L (46-116); BILIRUBIN - TOTAL 0.45 mg/dL (0.2-1.3); CALCIUM 8.1 mg/dL (8.5-10.1); CARBON DIOXIDE 31.9 mmol/L (21.0-32.0); CHLORIDE - SERUM 100 mmol/L (98-107); CREATININE - SERUM 0.7 mg/dL (0.6-1.3); GLUCOSE 120 mg/dL (74-106); POTASSIUM - SERUM 3.7 mmol/L (3.5-5.1); PROTEIN - SERUM 5.5 g/dL (6.4-8.2); SODIUM 137 mmol/L (136-145); eGFR NON AFRICAN AMERICAN > 90 mL/min (90-120)
[2017-08-20 05:19] LABS: ALT (SGPT) 51 U/L (10-68); CALC OSMOLALITY 275 mosm/kg (275-300); UREA NITROGEN 14 mg/dL (7-18)
[2017-08-20 05:32] LABS: HEMATOCRIT 21.3 % (36.0-48.0); MCH 29.5 pg (26.0-34.0); MCHC 31.5 g/dL (31.0-37.0); MCV 93.8 fL (80.0-100.0); MEAN PLATELET VOLUME 9.5 fL (7.4-10.4); RBC 2.27 10x6/uL (4.00-5.40); RDW 13.3 % (11.5-14.5); WBC 8.9 10x3/uL (4.8-10.8)
[2017-08-20 05:33] LABS: HEMOGLOBIN 6.7 g/dL (12-16)
[2017-08-21] VITALS (24 sets, daily range): BP systolic 101–152; BP diastolic 51–93
[2017-08-21 06:17] LABS: MCH 29.4 pg (26.0-34.0); MCHC 31.7 g/dL (31.0-37.0); MCV 92.9 fL (80.0-100.0); MEAN PLATELET VOLUME 9.3 fL (7.4-10.4); RDW 13.8 % (11.5-14.5)
[2017-08-21 06:18] LABS: HEMATOCRIT 26.2 % (36.0-48.0); HEMOGLOBIN 8.3 g/dL (12-16); RBC 2.82 10x6/uL (4.00-5.40)
[2017-08-21 06:47] LABS: ALBUMIN 2.1 g/dL (3.4-5.0); ALKALINE PHOSPHATASE 141 U/L (46-116); CALC OSMOLALITY 274 mosm/kg (275-300); CALCIUM 8.1 mg/dL (8.5-10.1); CARBON DIOXIDE 28.5 mmol/L (21.0-32.0); CHLORIDE - SERUM 101 mmol/L (98-107); CREATININE - SERUM 0.7 mg/dL (0.6-1.3); GLUCOSE 137 mg/dL (74-106); PROTEIN - SERUM 5.9 g/dL (6.4-8.2); SODIUM 136 mmol/L (136-145); UREA NITROGEN 15 mg/dL (7-18); eGFR NON AFRICAN AMERICAN > 90 mL/min (90-120)
[2017-08-21 06:56] LABS: ALT (SGPT) 81 U/L (10-68); POTASSIUM - SERUM 4.3 mmol/L (3.5-5.1)
[2017-08-22] VITALS (15 sets, daily range): BP systolic 109–151; BP diastolic 56–88
[2017-08-22 06:14] LABS: BASOPHILS 0.6 % (0-2); EOSINOPHILS 3.8 % (0-7); HEMATOCRIT 27.1 % (36.0-48.0); HEMOGLOBIN 8.7 g/dL (12-16); IMMATURE GRANULOCYTES 0.4 % (0-5); LYMPHOCYTES 28.2 % (15-50); MCH 29.7 pg (26.0-34.0); MCHC 32.1 g/dL (31.0-37.0); MCV 92.5 fL (80.0-100.0); MEAN PLATELET VOLUME 9.3 fL (7.4-10.4); MONOCYTES 12.1 % (2-11); NEUTROPHILS 54.9 % (40-80); PLATELET COUNT 294 10x3/uL (130-400); RBC 2.93 10x6/uL (4.00-5.40); RDW 13.4 % (11.5-14.5)
[2017-08-22 06:56] LABS: ALBUMIN 2.1 g/dL (3.4-5.0); ALKALINE PHOSPHATASE 154 U/L (46-116); ALT (SGPT) 73 U/L (10-68); BILIRUBIN - TOTAL 0.42 mg/dL (0.2-1.3); CALC OSMOLALITY 275 mosm/kg (275-300); CALCIUM 8.7 mg/dL (8.5-10.1); CARBON DIOXIDE 29.1 mmol/L (21.0-32.0); CHLORIDE - SERUM 101 mmol/L (98-107); CREATININE - SERUM 0.7 mg/dL (0.6-1.3); GLUCOSE 121 mg/dL (74-106); POTASSIUM - SERUM 4.4 mmol/L (3.5-5.1); SODIUM 137 mmol/L (136-145); UREA NITROGEN 14 mg/dL (7-18); eGFR NON AFRICAN AMERICAN > 90 mL/min (90-120)
[2017-08-22] MEDS ORDERED: HEMOCYTE PLUS C1 CAP PO (13:45)
[2017-08-22] MEDS ORDERED: ASPIRIN81 MG PO (13:46)
[2017-08-22] MEDS ORDERED: HYDROCODONE-APA1 TAB PO (13:47)
[2017-08-22] MEDS ORDERED: LISINOPRIL5 MG PO (15:20)
[2017-08-22] MEDS ORDERED: TOPROL XL25 MG PO (15:20)
[2017-08-22] MEDS ORDERED: LASIX40 MG PO (15:20)
== END 2017-08-22 16:30 | disposition home health service (06) | DRG 221 ==
LOC: D.SDCHOLD 08-15 07:30 → D.CVICU 08-16 05:31 → D.SDCHOLD 08-16 07:30 → D.CVICU 08-16 15:01
PROVIDERS: Family Medicine; Thoracic Surgery (Cardiothoracic Vascular Surgery)
PROC: 02100Z9 Bypass Coronary Artery, One Artery from Left Internal Mammary, Open Approach (ICD-10-PCS; 2017-08-16)
PROC: 06BP0ZZ Excision of Right Saphenous Vein, Open Approach (ICD-10-PCS; 2017-08-16)
PROC: 5A1221Z Performance of Cardiac Output, Continuous (ICD-10-PCS; 2017-08-16)
PROC: B245ZZ4 Ultrasonography of Left Heart, Transesophageal (ICD-10-PCS; 2017-08-16)
PROC: 02QG0ZZ Repair Mitral Valve, Open Approach (ICD-10-PCS; principal; 2017-08-16 07:30)
PROC: 021209W Bypass Coronary Artery, Three Arteries from Aorta with Autologous Venous Tissue, Open Approach (ICD-10-PCS; 2017-08-16 07:30)
DX: I25.10 Atherosclerotic heart disease of native coronary artery without angina pectoris (principal); I34.0 Nonrheumatic mitral (valve) insufficiency; E11.9 Type 2 diabetes mellitus without complications; D64.9 Anemia, unspecified; I10 Essential (primary) hypertension; E78.5 Hyperlipidemia, unspecified; Z72.0 Tobacco use

== ENCOUNTER → 2017-09-03 13:38 | Outpatient (CLI) | payer MEDICARE ==
[2017-08-17 09:57] VITALS: BMI 31.2
[~2017-09-03 13:38] MED LIST changes: +ASPIRIN81 MG PO; +BUPROPION XL150 MG PO; +HEMOCYTE PLUS C1 CAP PO; +LASIX40 MG PO; +LISINOPRIL5 MG PO; +TOPROL XL25 MG PO; +VALIUM10 MG PO
[2017-09-03 14:34] LABS: HEMATOCRIT 31.6 % (36.0-48.0); MCH 28.5 pg (26.0-34.0); MCHC 31.6 g/dL (31.0-37.0); MEAN PLATELET VOLUME 8.9 fL (7.4-10.4); RBC 3.51 10x6/uL (4.00-5.40); RDW 13.4 % (11.5-14.5); WBC 10.7 10x3/uL (4.8-10.8)
[2017-09-03 14:49] LABS: ALBUMIN 3.1 g/dL (3.4-5.0); ANION GAP 13.7 mmol/L (8-16); BILIRUBIN - TOTAL 0.28 mg/dL (0.2-1.3); CALCIUM 8.8 mg/dL (8.5-10.1); CARBON DIOXIDE 28.5 mmol/L (21.0-32.0); POTASSIUM - SERUM 4.2 mmol/L (3.5-5.1); PROTEIN - SERUM 7.3 g/dL (6.4-8.2)
== END | disposition home or self-care (01) ==
LOC: D.RAD 13:38
PROVIDERS: Thoracic Surgery (Cardiothoracic Vascular Surgery)
DX: J91.8 Pleural effusion in other conditions classified elsewhere (principal); D64.9 Anemia, unspecified; R94.5 Abnormal results of liver function studies

== ENCOUNTER → 2017-10-05 16:56 | Outpatient (CLI) | payer MEDICARE ==
[2017-08-17 09:57] VITALS: BMI 31.2
[2017-10-18 19:11] LABS: AEROBE ID Final report (())
== END | disposition home or self-care (01) ==
LOC: D.LABREF 16:56
PROVIDERS: Internal Medicine Cardiovascular Disease
DX: L03.115 Cellulitis of right lower limb (principal)

== ENCOUNTER 2018-03-16 21:47 | Emergency (ER) | payer MEDICARE, MEDICAID ==
[~2018-03-16] VITALS: Ht 177.8 cm; Wt 94.5 kg
[2018-03-16 21:51] VITALS: Ht 177.8 cm; Wt 94.5 kg
[2018-03-16 23:19] VITALS: BP 149/89
== END 2018-03-16 23:19 | disposition home or self-care (01) ==
LOC: D.ER 21:47
DX: L24.89 Irritant contact dermatitis due to other agents (principal); E11.9 Type 2 diabetes mellitus without complications; I10 Essential (primary) hypertension; I25.10 Atherosclerotic heart disease of native coronary artery without angina pectoris; F17.200 Nicotine dependence, unspecified, uncomplicated

== ENCOUNTER → 2018-09-16 12:59 | Outpatient (CLI) | payer MEDICARE, MEDICAID | END | disposition home or self-care (01) | LOC: D.MRI 12:59 | DX: M25.561 Pain in right knee (principal) ==

== ENCOUNTER 2018-10-10 11:45 | Day surgery (SDC) | payer MEDICARE, MEDICAID ==
[2018-10-09 14:25] LABS: HEMATOCRIT 41.5 % (36.0-48.0); HEMOGLOBIN 14.2 g/dL (12-16); MCH 31.3 pg (26.0-34.0); MCHC 34.2 g/dL (31.0-37.0); MCV 91.4 fL (80.0-100.0); MEAN PLATELET VOLUME 9.8 fL (7.4-10.4); RBC 4.54 10x6/uL (4.00-5.40); RDW 12.5 % (11.5-14.5); WBC 8.4 10x3/uL (4.8-10.8)
[2018-10-09 14:34] LABS: CALC OSMOLALITY 282 mosm/kg (275-300); CALCIUM 9.3 mg/dL (8.5-10.1); CARBON DIOXIDE 32.3 mmol/L (21.0-32.0); CHLORIDE - SERUM 100 mmol/L (98-107); CREATININE - SERUM 0.8 mg/dL (0.6-1.3); GLUCOSE 186 mg/dL (74-106); POTASSIUM - SERUM 3.9 mmol/L (3.5-5.1); SODIUM 138 mmol/L (136-145); UREA NITROGEN 17 mg/dL (7-18); eGFR NON AFRICAN AMERICAN 80 mL/min (90-120)
[~2018-10-10] VITALS: Ht 177.8 cm; Wt 87.3 kg
[~2018-10-10 11:45] MED LIST changes: +BACITRACIN 15 G15 GM TOPICAL; +BACTROBAN NASAL1 GM NASAL; +ZESTORETIC 20-1 EACH PO
[2018-10-10 13:36] VITALS: BP 105/82; BMI 29.9
[2018-10-10 17:27] VITALS: BP 150/74
[2018-10-10 17:51] VITALS: BP 150/74
[2018-10-10 18:10] VITALS: BP 155/86; Ht 177.8 cm; Wt 87.3 kg
--- NOTE | 2018-10-10 20:10 | NUR ---
RECEIVED AWAKE,ALERT.NO COMPLAITNS VOICED.IV TO LAC INTACT WITHOUT REDNESS OR EDEMA NOTED.ANITA WRAP WITH IMOBILIZER INTACT TO RLE WITHOUT DRAINAGE NOTED. FOOT WARM TO TOUCH. PPP. CL IN REACH. FAMILY IN ROOM.
[2018-10-10 21:34] VITALS: BP 143/75
[2018-10-11 01:25] VITALS: BP 154/80
[2018-10-11 05:06] LABS: HEMATOCRIT 40.4 % (36.0-48.0); HEMOGLOBIN 13.6 g/dL (12-16)
[2018-10-11 05:27] VITALS: BP 130/77
--- NOTE | 2018-10-11 07:45 | NUR ---
ASSESSMENT PER FLOW SHEET. PT IS WITHOUT DISTRESS. DRESSING RIGHT LEG CLEAN AND DRY. IMMOBILIZER IN PLACE.
[2018-10-11] MEDS ORDERED: PERCOCET 10-321 EAC1 PO (08:29)
[2018-10-11 08:46] VITALS: BP 184/98
--- NOTE | 2018-10-11 09:02 | MORECARE ---
CASE MANAGEMENT DISCHARGE SUMMARY PATIENT: JENNIE SAVAGE UNIT: [id number] ADM DATE: 10/10/18 AGE: 53 : 69 SEX: F ROOM/BED: D.2225 AUTHOR: DAWIT DREW PHYSICIAN: REFERRING PHYSICIAN: LAXMI OMALLEY MD DATE OF SERVICE: 10/11/18 Discharge Plan Patient Name: JENNIE SAVAGE [facility] [facility] 1965 Planned Disposition: Anticipated Discharge Date: 10/11/18 Discharge Date: Expected LOS: 1 Initial Reviewer: [email or web address] Initial Review Date: 10/11/2018 Generated: 10/11/18 10:02 am Patient Name: JENNIE SAVAGE Page [id number] at 0902 All edits/amendments must be made on the electronic document DICTATION DATE: 10/11/18901 MIXER AND SCALER: JONATHAN 10/11/18901 RPT#: [id number] DC DATE: STATUS: REG [facility] [address] [place] [address] END OF REPORT
--- NOTE | 2018-10-11 09:09 | MORECARE ---
CASE MANAGEMENT DISCHARGE SUMMARY PATIENT: JENNIE SAVAGE UNIT: [id number] ADM DATE: 10/10/18 AGE: 53 : 69 SEX: F ROOM/BED: D.2225 AUTHOR: DAWIT DREW PHYSICIAN: REFERRING PHYSICIAN: LAXMI OMALLEY MD DATE OF SERVICE: 10/11/18 Discharge Plan Patient Name: JENNIE SAVAGE Facility: [facility]:[place] : 1965 Planned Disposition: Anticipated Discharge Date: 10/11/18 Discharge Date: Expected LOS: 1 Initial Reviewer: [email or web address] Initial Review Date: 10/11/2018 Generated: 10/11/18 10:09 am Comments DCP- Discharge Planning Updated by [email or web address]: Mily Zaidi on 10/11/18 8:[address] Received order for discharge. She has a ride her for transport home. She will need crutches and signs STEVE for [employer]. States she will need whoever covers her insurance. I called and spoke with Ashley at [employer] [facility] and they do cover [employer], clinical and order for crutches faxed. Patient states she has used crutches many times and knows how to use them. No other needs identified. CM will continue to follow and assist with discharge planning/needs. External Providers External Provider: [facility] Next Contact Date: Service Request Date: Service Type: Resolution: Reviewer: Comments: Coverage Notice Reviewer: [email or web address] - Mily Zaidi Notice Issued Date-Time: 10/11/2018 9:07 Notice Type: Patient Choice Letter Notice Delivered To: Patient Relationship to Patient: Hand Paster Name: Delivery Method: HAND - Hand Delivered Sharon Days: Prior Verbal Notification: Recipient Understood Notice: Yes Recipient Signature: Yes Med Rec Note Co-signed by Attending: Coverage Notice Comment: STEVE for [employer] [facility] Last DP export: 10/11/18 8:02 am Patient Name: JENNIE SAVAGE Page [id number] at 0909 All edits/amendments must be made on the electronic document DICTATION DATE: 10/11/18 0908 CAPACITY ANALYST: JONATHAN 10/11/18 0908 RPT#: [id number] DC DATE: STATUS: REG [facility] [address] [facility] [place] [address] END OF REPORT
--- NOTE | 2018-10-11 12:09 | NUR ---
IV DCD WITH CATH TIP INTACT, DISCHARGE INSTRUCTIONS,STATES UNDERSTANDING.PT IS WAITING ON CRUTCHES TO BE DELIVERED
--- NOTE | 2018-10-11 12:57 | NUR ---
CRUTCHES HERE. PT LEFT UNIT VIA WHEELCHAIR FOR TRANSPORT HOME
--- NOTE | 2018-10-14 09:07 | OP ---
PATIENT NAME: JENNIE SAVAGE MEDICAL RECORD: [id number] :69 LOCATION:[facility] ADMISSION DATE: SURGEON: LAXMI OMALLEY MD DATE OF OPERATION: 10/10/2018 PREOPERATIVE DIAGNOSIS: Osteochondral defect, medial femoral condyle of the right knee. POSTOPERATIVE DIAGNOSIS: Osteochondral defect, medial femoral condyle of the right knee. PROCEDURE: Osteochondral allograft, right knee, arthroscopically. SURGEON: Laxmi Omalley MD FOREMAN OR SUPERVISOR AND OPERATOR: ALBERTA Arora INTRAOPERATIVE COMPLICATIONS: None. SUMMARY OF PATHOLOGIC FINDINGS: As predicted with preoperative diagnosis, the patient had an osteochondral defect of approximately 2.5 cm in total. It was more elongated and better filled with BioCartilage rather than Cartiform. OPERATIVE SUMMARY IN DETAIL: After obtaining the appropriate preoperative orthopedic surgery consent as well as anesthetic consultation, evaluation, and clearance, the patient was brought to the operating room and placed on the operating table in the supine position. After general laryngeal mask was administered, tourniquet was placed about the proximal aspect of the right lower extremity. The right lower extremity was then prepped and draped in routine sterile fashion. The leg was elevated, exsanguinated, and the tourniquet was inflated to 350 mmHg. Routine inferolateral portal was established followed by superomedial and inferomedial portal. Diagnostic arthroscopy revealed the patient had very nice knee with exception of the medial femoral condylar osteo defect. Combination of arthroscopic curettage as well as arthroscopic resector was utilized to demarcate the edges to an area of nonloose chondral flaps. Having finished this demarcation, arthroscopic chondral pick was utilized to create multiple holes past the tight dandre of the bony undersurface. Having completed this, almost all of the fluid was evacuated from the knee and the insufflation tube was hooked up, set at 5, and gentle insufflation of the knee was done. The area was completely dried. The BioCartilage mixed with PRP to the appropriate thickness was then applied in the whole under arthroscopic visualization. This was then tamped down gently and then BioGlue was then placed over this very gently without any displacement of the BioCartilage. Having completed this, the knee was extended with a valgus load and then very gently released to hold the cartilage in place. Having completed this, the residual PRP of approximately 2.25 cc was mixed with 5 cc of PPP and then injected into the knee for further healing. Arthroscopic portals were closed in routine interrupted fashion using 4-0 Prolene. Sterile dressings were applied. Tourniquet was deflated. The patient was awakened and taken to the recovery room in stable condition. All final needle and sponge counts were correct. TRANSINT:[id number] Voice Confirmation ID: [id number] DOCUMENT ID: [id number] OPERATIVE REPORT [id number] JENNIE SAVAGE MD, LAXMI CORONADO at 0907 CC: [id number] DICTATION DATE: 10/10/18 1609 BIOMASS POWER PLANT MANAGER: 10/10/18 1638 [facility] 10/11/18 [place] [id number] [place] [address]
== END 2018-10-11 12:58 | disposition home or self-care (01) ==
LOC: D.MS 11:45 → D.OPS 11:45 → D.MS 17:10 → D.OPS 10-11 12:58
PROVIDERS: Anesthesiology; ATTEND Orthopaedic Surgery
DX: M21.851 Other specified acquired deformities of right thigh (principal); Z01.812 Encounter for preprocedural laboratory examination